=== PATIENT | female | born 1970 | race Caucasian/White ===

== ENCOUNTER 2023-08-17 06:13 | Day surgery (SDC) | payer BC, SELFPAY ==
[2023-07-31 10:57] LABS: % Basophils 0.3 % (0-2); % Eosinophils 0.3 % (0-6); % Immature Granulocytes 0.3 % (0-0.5); % Monocytes 4.1 % (1.7-9.3); Absolute Lymphocytes 2.7 10^3/uL (1.2-3.4); Absolute Monocytes 0.5 10^3/uL (0.1-0.6); Hematocrit 36.5 % (37.0-47.0); Hemoglobin 12.3 g/dL (12.0-16.0); Mean Corp Hgb Conc. 33.7 g/dL (33.0-37.0); Mean Corpuscular Hgb 29.8 pg (27.0-31.0); Mean Corpuscular Volume 88.4 fL (81.0-99.0); Mean Platelet Volume 9.1 fL (7.4-10.4); Nucleated Red Blood Cells % 0 %; Platelet Count 296 10^3/uL (130-400); Red Blood Cell Count 4.13 10^6/uL (4.20-5.40); Red Cell Dist. Width 12.3 % (11.5-14.5); White Blood Cell Count 12.3 10^3/uL (4.8-10.8)
[2023-07-31 11:09] LABS: Blood Urea Nitrogen 17 mg/dl (7-17); Calcium 9.2 mg/dl (8.4-10.2); Carbon Dioxide 27 mmol/L (22-30); Chloride 102 mmol/L (98-107); Glucose 74 mg/dl (70-99); Sodium 138 mmol/L (135-145); eGFR > 60.00
[2023-07-31 11:22] LABS: Beta HCG Quantitative < 2.39 mIU/ml
[2023-07-31 12:22] VITALS: BMI 28.9
[2023-08-17] VITALS (10 sets, daily range): BP systolic 89–102; BP diastolic 50–65; BMI 28.9
[2023-08-17] MEDS: NORMOSOL-R 1000 IV (06:46)
--- NOTE | 2023-08-17 08:02 | W.IMMPOSTOP ---
Surgical Immed Post Op Note
-
Primary Surgeon: Tony Villanueva DO
Assisting Surgeon: none
Pre-op Diagnosis: menorrhagia, abnormal imaging with endometrial mass, suspected polyp
Post-op Diagnosis: same, endometrial polyp
Procedure Performed: Hysteroscopy D&C polypectomy
Anesthesia Type: LMA Dr. Swan
Specimen / Cultures: 1. endocervical curettings 2. endometrial curettings and polyp
Estimated Blood Loss: less than 5 ml
Fluid deficit: 45 ml NSS
Complications: none
Operative Findings: Uterus sounds to 7cm, endometrial polyp seen at fundus, bilateral tubal ostia seen.
Counts correct times 2.
Stable to recovery
== END 2023-08-17 10:00 | disposition home or self-care (01) ==
LOC: SDS 06:13
PROVIDERS: ATTENDING PHYSICIAN Obstetrics & Gynecology; FAMILY PHYSICIAN Family Medicine Sports Medicine
DX: N92.0 Excessive and frequent menstruation with regular cycle (principal); N84.0 Polyp of corpus uteri
CPT/HCPCS: 58558; 88305; 36415; 80048; 84702; 85025; 86850; 86900; 86901; 93005